=== PATIENT | male | born 1945 | race Caucasian/White ===

== ENCOUNTER 2020-04-22 09:09 | Observation (INO) | payer MEDICARE ==
[~2020-04-22] VITALS: Ht 175.3 cm; Wt 90.7 kg
[2020-04-22] VITALS (13 sets, daily range): BP systolic 118–147; BP diastolic 63–93
--- NOTE | ~2020-04-22 | D ---
[address] [address] DISCHARGE SUMMARY Name: DARBY MONTIEL Room: [address] Inocente Myers#: [id number] Admission: 04/22/20 Attend Phys: Kevon Cunningham MD, Discharge: Date of : 49 Report #: [id number] THIS REPORT FOR: //name// cc: Physician not on staff Physician not on staff ~ THIS REPORT FOR: //name// CC: Kevon MCNEIL Physician staff DATE OF SERVICE: 04/23/2020 FINAL DISCHARGE DIAGNOSES: 1. Unstable angina. 2. Coronary artery disease. 3. Status post complex percutaneous coronary intervention of the left anterior descending, diagonal and circumflex. 4. Hypertension. 5. Family history of coronary artery disease. 6. Exogenous obesity. 7. Statin intolerance. PROCEDURES: 04/22/2020 -- left heart catheterization, left ventriculography, selective coronary arteriography, percutaneous coronary intervention with atherotomy/atherectomy of the first diagonal, stenting of the proximal-mid LAD and stenting of the circumflex with drug-eluting stents deployed at both sites. HOSPITAL COURSE: The patient is a very pleasant and active 75-year-old male with a history of coronary artery disease, status post prior PCIs, most recently in 2007. Recently, he has noted recrudescence of chest pain similar to angina that he experienced in the past following an unstable course of increasing frequency and severity of episodes. He has underlying hyperlipidemia, hypertension and a family history of coronary artery disease. In this context, I recommended to proceed with cardiac catheterization, which was undertaken on 04/22/2020. That study demonstrated normal left ventricular function with estimated ejection fraction of 65%. There was significant multivessel disease with 90% diffuse proximal-mid LAD stenosis, 90% first diagonal stenosis involving a previously stented site, 90% proximal circumflex stenosis and 80% tubular distal circumflex narrowing. The right coronary artery was chronically occluded proximally with oeftj-pn-agtma bridging and hvgd-uj-uvjyt collaterals filling the distal [place] [address] DISCHARGE SUMMARY Name: DARBY MONTIEL Room: [address] M.R.#: [id number] Admission: 04/22/20 Attend Phys: Kevon Cunningham MD, Discharge: Date of : 49 Report #: [id number] Given this data and the patient's strong desire to proceed with percutaneous rather than surgical revascularization, I proceeded with complex PCI, proceeding with atherectomy/atherotomy of the first diagonal, stenting of the proximal-mid LAD with a 2.75 x 23 mm Xience drug-eluting stent post-dilated to 3.1 mm and stenting the proximal circumflex with a 2.5 x 18 mm Rufus drug-eluting stent with 0% residual narrowing at both the LAD and circumflex sites and 40% narrowing of the first diagonal on after atherotomty/atherectomy was performed. He did well postprocedurally without chest pain. Troponin halle inconsequently to 0.98. Additional lab was sodium 134, potassium 4.3, BUN 12, creatinine 1.0, glucose 137. Hemoglobin 14.2, white blood cell count 8400 with 320,000 platelets. The patient ambulated without difficulty and there was good hemostasis at the right femoral site of catheterization. He was discharged to home on the following medications: Aspirin 81 mg daily, cyanocobalamin or vitamin B12 one tablet daily, magnesium 250 mg daily, multivitamin with iron herbal complex 1 tablet daily, omega 3 fatty acids 1000 units daily, prasugrel 10 mg daily with a 60 mg christiana-procedural dose, sertraline 25 mg daily, Micardis 40 mg daily, testosterone jelly topically daily, and p.r.n. sublingual nitroglycerin. Noting the coronary anatomy with strong consideration of additional PCI to the distal circumflex of prominent vessel with 80% tubular narrowing. This was discussed in detail with the patient and family. Therefore, the patient is discharged to home in stable condition on the aforementioned medications with followup to be arranged. He is to call our office at times it would be appropriate for him. Therefore, the patient is discharged in stable condition on 04/23/2020. By: 1050 1117Kevon Cunningham MD, [facility] /nt
[2020-04-22] MEDS ORDERED: ANDROGEL1.25 GM TOP (09:50)
[2020-04-22] MEDS ORDERED: MICARDIS40 MG PO (09:51)
[2020-04-22] MEDS ORDERED: SERTRALINE HCL100 MG PO (09:51)
[2020-04-22] MEDS ORDERED: FISH OIL 1,0001 EAC9 PO (09:52)
[2020-04-22] MEDS ORDERED: MAGNESIUM250 M1 PO (09:53)
[2020-04-22] MEDS ORDERED: B-125000 MC1 PO (09:53)
[2020-04-22] MEDS ORDERED: CHILDREN'S ASPI81 M1 PO (09:53)
[2020-04-22] MEDS ORDERED: VITAMIN D3 COM1 EACH PO (09:54)
[2020-04-22 10:10] LABS: HEMOGLOBIN 14.7 gm/dL (14.0-18.0); MCH 29.7 pg (26.0-34.0); MCV 84.8 fL (80.0-100.0); MPV 7.5 fl. (7.2-11.1); RBC 4.95 mil/uL (4.50-6.00); WBC 7.5 thou/uL (4.0-11.0)
[2020-04-22 10:16] LABS: APTT 26.4 Seconds (25.0-31.3); INR 0.9; PROTIME 9.5 Seconds (9.20-11.50)
[2020-04-22 10:36] LABS: ANION GAP 7 mmol/L (7-16); BUN 9 mg/dL (7-18); CALCIUM 8.8 mg/dL (8.5-10.1); CHLORIDE 101 mmol/L (98-107); CO2 27 mmol/L (21-32); CREATININE 0.9 mg/dL (0.6-1.3); GLUCOSE 103 mg/dL (70-99); POTASSIUM 4.8 mmol/L (3.5-5.1); SODIUM 135 mmol/L (136-145)
[2020-04-22 10:41] LABS: ALBUMIN 3.7 g/dL (3.4-5.0); ALKALINE PHOSPHATASE 62 U/L (46-116); CHOLESTEROL 234 mg/dL (<200); HDL CHOLESTEROL 37 mg/dL (>40); LDL CHOLESTEROL 162 mg/dL (<100); SERUM ASSESSMENT Clear; SGOT 36 U/L (15-37); SGPT 33 U/L (30-65); TC:HDL 6.3 Ratio (Not establshd); TOTAL BILIRUBIN 0.6 mg/dL (<0.1-1.0); TOTAL PROTEIN 7.3 g/dL (6.4-8.2); TRIGLYCERIDE 179 mg/dL (<150); VLDL 36 mg/dL (<40)
--- NOTE | 2020-04-22 14:06 | EKG ---
[place] [address] ELECTROCARDIOGRAM REPORT Name: DARBY MONTIEL Room: [address]#: [id number] Admission: 04/22/20 Attend Phys: Zabrina Womack Discharge: Date of : 49 Date of Service: 04/22/20 1350 Report #: [id number] THIS REPORT FOR: //name// [facility] Test Date: 2020-04-22 Test Time: 13:50:16 Pat Name: DARBY MONTIEL Department: Room: [facility] Gender: M Peoplesoft Hcm Consultant: : 1945 Requested By: Kevon Cunningham Order Number: [id number] Joann MD: Kevon Cunningham Measurements Intervals [place] Rate: 66 P: 69 MD: 126 QRS: 51 QRSD: 122 T: 4 QT: 401 QTc: 421 Interpretive Statements Sinus rhythm Right bundle branch block Baseline wander in lead(s) V2 No previous ECG available for comparison Electronically Signed On 04-22-2020 14:06:20 CDT by Kevon Cunningham [email or web address] <ELECTRONICALLY SIGNED> By: Kevon Cunningham MD, [facility] 04/22/20 1406 1350 1350 Kevon Cunningham MD, [facility] /EPI
--- NOTE | 2020-04-22 14:54 | CARD ---
[address] [address] CARDIAC CATH REPORT Name: TAMMYLashandaDARBY Yanet Room: [address] Inocente M.R.#: [id number] Admission: 04/22/20 Attend Phys: Kevon Cunningham MD, Discharge: Date of : 49 Report #: [id number] THIS REPORT FOR: //name// cc: Physician not on staff Physician not on staff ~ ADDENDUM APPROVED REPORT Study performed: 04/22/2020 10:55:44 Patient Details Patient Status: Out-Patient Room #: The patient is a 75 year-old male Event Personnel Kevon Cunningham Compensation And Benefits Advisor, Cait Brito RN Medicare Coordinator, Clint Donohue SHAREPOINT MANAGER Scrub, Anne Spring RTR Monitor Procedures Performed Art Access - R femoral artery, Left Heart Cath w/or w/o Coronaries LHC, Atherectomy w/wo Plasty Sgl DIAG ATHSINGLE, PAUL Place w/wo Plasty Single LAD , PAUL Place w/wo Plasty Single CIRC , Hemostasis w/ Angioseal Indication Unstable angina Risk Factors Obesity, Hypercholesterolemia, Hypertension Previous Procedures/Diagnoses Previous PCI Admission/Lab Medications/Medications given during procedure Angiomax IV 13.5 ml, Angiomax Drip IV 31.74 ml per hr, Angiomax IV 4 ml, Effient PO 60 mg, Aspirin PO 324 mg Procedure Narrative The patient was brought electively to the Cardiac Catheterization Laboratory and was prepped and draped in a sterile manner. The right femoral was infiltrated with 2% Lidocaine subcutaneous anesthesia. A 6F [place] sheath was inserted into the right femoral artery. Coronary angiography was performed using coronary diagnostic catheters. The right coronary system was accessed and visualized with a 6F JR4 catheter. The left coronary [place] [address] CARDIAC CATH REPORT Name: DARBY MONTIEL Room: [address]#: [id number] Admission: 04/22/20 Attend Phys: Kevon Cunningham MD, Discharge: Date of : 49 Report #: [id number] visualized with a 6F JL4 catheter. The left ventricle was accessed and visualized with a 6F Pigtail catheter. Left ventricular/Aortic Valve gradient assessed via catheter pullback. Left ventriculogram was performed in [place] projection. Pre-demployment femoral angiogram was performed . Closure device was deployed with a 6 Fr Angioseal STS. The patient tolerated the procedure well and there were no complications associated with the procedure. There was no hematoma. Intraoperative Conscious Sedation Sedation start time: 11:23 Case end Time: 12:56 Fentanyl 50 mcg Versed 3 mg Fluoro Time: 27.7 minutes Dose: DAP 346659 cGycm2 5158 mGy Contrast Type and Amount: Visipaque 500 ml Coronary Angiography The patient's coronary anatomy is right dominant. Diagnostic Cath Left Main 0% narrowing LAD 90% diffuse proximalmid vessel stenosis with 90% tandem first diagonal stenosis Circumflex 75% ostial with 90% proximal circumflex stenosis with 75% tubular distal circumflex narrowing Right Coronary 100% proximal right coronary occlusion with bridging right to right and lknv-gs-fldvm collaterals filling the distal right coronary artery Left Ventriculography The left ventricle is normal in size with normal contractility. The left ventricular ejection fraction is estimated to be 65-70%. Left ventricular wall motion abnormalities are not present. There is no mitral insufficiency. Hemodynamics The aortic pressure is 129/59 mmHg with a mean of 89 mmHg. The left ventricular pressure is 130/3 mmHg with a mean of mmHg. The left ventricular end diastolic pressure is 19 mmHg. There was no gradient across the aortic valve upon pullback. PCI Technique Lesion Anticoagulation was achieved with Angiomax. Patient was preloaded with Angiomax IV 13.5 ml. Percutaneous [place] [address] CARDIAC CATH REPORT Name: DARBY MONTIEL Room: [address]#: [id number] Admission: 04/22/20 Attend Phys: Kevon Cunningham MD, Discharge: Date of : 49 Report #: [id number] performed on the first diagnonal branch segment. The lesion stenosis prior to intervention was 90% with REYES 2 flow. A 6F XB LAD 3.5 Guide Catheter was used to engage the ostium. A BMW 190cm Interventional Guidewire was used to cross the lesion. BALLOON DILATION A Balloon catheter Mini Trek RX 1.5 X 12 was inserted and inflated up to 17.00atm for 10seconds. Additional Inflation: 17.00atm for 7seconds. A Balloon catheter Mini Trek RX 2.0 x 15 was inserted and inflated up to 10 bren for 7 seconds. Additional Inflations: 15 bren for 10 seconds; 15 bren for 8 seconds. A Balloon catheter NC Trek RX 2.0 x 12 was inserted and inflated up to 18 bren for 7 seconds. Additional Inflations: 20 bren for 5 seconds; 22 bren for 8 seconds. A Balloon catheter Trek RX 2.5 x 15 was inserted and inflated up to 14 bren for 9 seconds. Additional Inflations: 16 bren for 8 seconds; 16 bren for 10 seconds. An Athrectomy Cutting Balloon catheter AngioSculpt PTCA 2.0 x 10mm was inserted and inflated up to10 bren for 12 seconds. Additional Inflations: 12 bren for 12 seconds; 14 bren for 11 seconds. Final angiography reveals 40 % stenosis with REYES 3 flow. COMMENTS A ProwaterFlex 180cm Interventional Guidewire was advanced down LAD artery. PCI Technique Lesion 2 Percutaneous Coronary Intervention was performed on the proximal left anterior descending artery segment. Patient was preloaded with Angiomax IV 13.5 ml. The lesion stenosis prior to intervention was 90% with REYES flow. A 6F XB LAD 3.5 Guide Catheter was used to engage the lm ostium. A ProwaterFlex 180CM Interventional Guidewire was used to cross the lesion. Balloon Dilation A Balloon catheter NC Euphora 2.75x20 was inserted and inflated up to 18.00atm for 7seconds. Additional Inflation: 18.00atm for 8seconds. Stent Deployment A drug-eluting stent Xience Nova 2.32Q44pj was inserted and inflated up to 15.00atm for 5seconds. Additional Inflation: 18.00atm for 8seconds. Additional Inflation: 20.00atm for 9seconds. Post Stent Deployment Balloon Dilation A Balloon catheter NC Euphora 3.0x12 was inserted and inflated up to [facility] [address] [place] [address] CARDIAC CATH REPORT Name: DARBY MONTIEL Room: [address]#: [id number] Admission: 04/22/20 Attend Phys: Kevon Cunningham MD, Discharge: Date of : 49 Report #: [id number] 17.00atm for 9seconds. Additional Inflation: 20.00atm for 10seconds. Additional Inflation: 20.00atm for 8seconds. Final angiography reveals 0 % stenosis with REYES 3 flow. PCI Technique Lesion 3 Percutaneous Coronary Intervention was performed on the proximal circumflex artery segment. Patient was preloaded with Angiomax IV 13.5 ml. The lesion stenosis prior to intervention was 90% with REYES 3 flow. A 6F XB LAD 3.5 Guide Catheter was used to engage the lm ostium. A BMW 190cm Interventional Guidewire was used to cross the lesion. Balloon Dilation A Balloon catheter Trek RX 2.5 X 15 was inserted and inflated up to 12.00atm for 8seconds. Stent Deployment A drug-eluting stent [place] RX Stent 2.5X18mm was inserted and inflated up to 12.00atm for 7seconds. Additional Inflation: 15.00atm for 7seconds. Final angiography reveals 0 % stenosis with REYES 3 flow. Conclusion 1. Significant multivessel coronary artery disease characterized by the following: A 90% diffuse proximalmid LAD stenosis with tandem 90% first diagonal stenoses B 75% ostial followed by 90% proximal circumflex stenosis with 75% tubular narrowing in the distal portion of this prominent though nondominant vessel C dominant right coronary which is totally occluded proximally with right to right bridging and lhnn-lm-mzgfc collaterals filling the distal right coronary artery 2. Normal left ventricular systolic function, estimated ejection fraction being 65 - 70% 3. Moderate elevation of left ventricular end-diastolic pressure at rest [address] [address] CARDIAC CATH REPORT Name: TAMMYLashandaDARBY Room: [address] Inocente Myers#: [id number] Admission: 04/22/20 Attend Phys: Kevon Cunningham MD, Discharge: Date of : 49 Report #: [id number] 4. Successful angioplasty and atherotomy/atherectomy of the first diagonal branch of the LAD with 40% residual narrowing and REYES-3 flow to the distal vessel 5. Successful PCI with deployment of drug-eluting stent at the site of 90% diffuse proximalmid LAD stenosis with 0% residual narrowing and REYES-3 flow to the distal vessel 6. Successful PCI with deployment of drug-eluting stent at the site of tandem 75% ostial and 90% proximal circumflex stenoses with 0% residual narrowing and REYES-3 flow to the distal vessel Recommendations Cardiac Risk Reduction Program Aggressive Medical Therapy Medications Administered Aspirin (any) Prasugrel Diagnostic Cath Approved by: Kevon Cunningham MD Date/Time: 04/22/2020 14:48:45 <ELECTRONICALLY SIGNED> By: Kevon Cunningham MD, [facility] 04/22/20 1453 1453 1453Kevon Cunningham MD, [facility] /INF
--- NOTE | 2020-04-22 20:00 | NUR ---
RECEIVED REPORT AND ASSUMED CARE OF PT, ASSESSMENT COMPLETED. PT C/O ABD SPASMS, STANDING AT BEDSIDE ATTEMPTING TO GET RELIEF. EXPLAINED FROM QUINONEZ AND REMOVED WITHOUT DIFFICULTY. RT GROIN DRSG DRY AND INTACT, NO HEMATOMA OR DRAINAGE. TELEMETRY ON SHOWING SR. STAYING AT BEDSIDE AND ASSISTING PT NEEDED. WILL CONT TO MONITOR
[2020-04-23 00:10] VITALS: BP 140/68
[2020-04-23 04:00] VITALS: BP 139/70
[2020-04-23 04:48] LABS: HEMATOCRIT 41.1 % (42.0-52.0); HEMOGLOBIN 14.2 gm/dL (14.0-18.0); MCH 29.7 pg (26.0-34.0); MCHC 34.6 g/dL (28.0-37.0); MCV 85.8 fL (80.0-100.0); MPV 7.2 fl. (7.2-11.1); RBC 4.79 mil/uL (4.50-6.00); RDW-CV 13.2 % (10.5-14.5); WBC 8.4 thou/uL (4.0-11.0)
[2020-04-23 05:25] LABS: ALBUMIN 3.5 g/dL (3.4-5.0); CALCIUM 8.2 mg/dL (8.5-10.1); POTASSIUM 4.3 mmol/L (3.5-5.1); TOTAL BILIRUBIN 0.6 mg/dL (<0.1-1.0); TOTAL PROTEIN 7.1 g/dL (6.4-8.2)
[2020-04-23 05:35] LABS: TROPONIN-I LEVEL 0.98 ng/mL (<0.06)
--- NOTE | 2020-04-23 06:30 | NUR ---
RT GROIN REMAINS DRY AND INTACT WITHOUT HEMATOMA. PT AWARE AND CHECKING SITE FREQ. VOIDING WITHOUT DIFFICULTY IN LG AMT. TELEMETRY CONT TO SHOW SR. NO COMPLAINTS VOICED. HS GOALS OF REST AND SAFETY ACHIEVED. HOURLY ROUNDING OBSERVED.
[2020-04-23 08:00] VITALS: BP 124/74
--- NOTE | 2020-04-23 08:00 | NUR ---
ASSUMED CARE OF PATIENT THIS MORNING FROM NIGHT NURSE. PT IS DOING WELL WITH AT BEDSIDE. PLANNING FOR DISCHARGE TODAY.
[2020-04-23] MEDS ORDERED: EFFIENT10 MG PO (11:08)
[2020-04-23] MEDS ORDERED: NITROGLYCERIN0.4 MG SUBLING (11:09)
[2020-04-23 11:25] VITALS: BP 124/74
[2020-04-23 11:35] VITALS: BP 145/70
--- NOTE | 2020-04-23 12:00 | NUR ---
PT WAS DISCHARED HOME WITH A LIST OF DISCHARGE INSTRUCTIONS AND HOME BELONGINGS. WILL CONTINUE TO MONITOR.
== END 2020-04-23 12:00 | disposition home or self-care (01) ==
LOC: M.CL 09:09 → M.TBA-CV 12:08 → M.2W 12:08 → M.TBA-CV 12:08 → M.2W 13:24
PROVIDERS: ADMIT Internal Medicine; ATTEND Internal Medicine
DX: Z03.818 Encounter for observation for suspected exposure to other biological agents ruled out (principal); I25.110 Atherosclerotic heart disease of native coronary artery with unstable angina pectoris; I10 Essential (primary) hypertension; E66.09 Other obesity due to excess calories; T46.6X5A Adverse effect of antihyperlipidemic and antiarteriosclerotic drugs, initial encounter; E78.5 Hyperlipidemia, unspecified; Z79.82 Long term (current) use of aspirin; Z79.899 Other long term (current) drug therapy; Z82.49 Family history of ischemic heart disease and other diseases of the circulatory system

== ENCOUNTER 2020-05-04 10:25 | Observation (INO) | payer MEDICARE ==
[~2020-05-04] VITALS: Ht 172.7 cm; Wt 89.8 kg
[2020-05-04] VITALS (20 sets, daily range): BP systolic 131–162; BP diastolic 62–80
--- NOTE | ~2020-05-04 | H ---
[address] [address] HISTORY AND PHYSICAL Name: DARBY MONTIEL Room: [address] Inocente MPrema#: [id number] Admission: 05/04/20 Attend Phys: Kevon Cunningham MD, Discharge: 05/05/20 Date of : 49 Report #: [id number] THIS REPORT FOR: //name// cc: Physician not on staff Physician not on staff ~ Please refer to the History and Physical performed in the physician's office. By: 1451Medical Records Staff TIFFANIE /CHARANJIT
[~2020-05-04 10:25] MED LIST: ANDROGEL1.25 GM TOP; B-125000 MC1 PO; CHILDREN'S ASPI81 M1 PO; EFFIENT10 MG PO; FISH OIL 1,0001 EAC9 PO; MAGNESIUM250 M1 PO; MICARDIS40 MG PO; NITROGLYCERIN0.4 MG SUBLING; SERTRALINE HCL100 MG PO; VITAMIN D3 COM1 EACH PO
[2020-05-04 11:03] LABS: HEMATOCRIT 40.6 % (42.0-52.0); MCH 29.3 pg (26.0-34.0); MCHC 34.6 g/dL (28.0-37.0); MCV 84.9 fL (80.0-100.0); MPV 7.2 fl. (7.2-11.1); RBC 4.79 mil/uL (4.50-6.00); RDW-CV 13.1 % (10.5-14.5); WBC 6.6 thou/uL (4.0-11.0)
[2020-05-04 11:13] LABS: ANION GAP 7 mmol/L (7-16); BUN 9 mg/dL (7-18); CALCIUM 8.9 mg/dL (8.5-10.1); CHLORIDE 102 mmol/L (98-107); CO2 26 mmol/L (21-32); CREATININE 0.9 mg/dL (0.6-1.3); GLUCOSE 123 mg/dL (70-99); INR 0.9; PROTIME 9.5 Seconds (9.20-11.50); SODIUM 135 mmol/L (136-145)
[2020-05-04 11:19] LABS: ALBUMIN 3.8 g/dL (3.4-5.0); ALKALINE PHOSPHATASE 67 U/L (46-116); CHOLESTEROL 243 mg/dL (<200); HDL CHOLESTEROL 37 mg/dL (>40); LDL CHOLESTEROL 157 mg/dL (<100); SGOT 13 U/L (15-37); SGPT 29 U/L (30-65); TC:HDL 6.6 Ratio (Not establshd); TOTAL BILIRUBIN 0.4 mg/dL (<0.1-1.0); TOTAL PROTEIN 7.5 g/dL (6.4-8.2); TRIGLYCERIDE 249 mg/dL (<150); VLDL 50 mg/dL (<40)
[2020-05-04 11:20] LABS: SERUM ASSESSMENT Clear
--- NOTE | 2020-05-04 15:24 | EKG ---
[place] [address] ELECTROCARDIOGRAM REPORT Name: DARBY MONTIEL Room: [address]#: [id number] Admission: 05/04/20 Attend Phys: Zabrina Womack Discharge: Date of : 49 Date of Service: 05/04/20 1106 Report #: [id number] THIS REPORT FOR: //name// [facility] Test Date: 2020-05-04 Test Time: 11:06:14 Pat Name: DARBY MONTIEL Department: Room: [facility] Gender: M Dude Wrangler: : 1945 Requested By: Kevon Cunningham Order Number: [id number] Joann MD: Kevon Cunningham Measurements Intervals [place] Rate: 86 P: 71 OR: 132 QRS: 58 QRSD: 131 T: 5 QT: 377 QTc: 451 Interpretive Statements Sinus rhythm Right bundle branch block Compared to ECG 04/22/2020 13:50:16 No significant changes Electronically Signed On 05-04-2020 15:23:43 CDT by Kevon Cunningham [email or web address] <ELECTRONICALLY SIGNED> By: Kevon Cunningham MD, [facility] 05/04/20 1523 1106 1106 Kevon Cunningham MD, [facility] /EPI
[2020-05-04] MEDS ORDERED: TRESIBA100 UNIT/1 SUBQ (16:11)
[2020-05-05] VITALS: BP 140/72
[2020-05-05 04:00] VITALS: BP 146/67
[2020-05-05 05:35] LABS: HEMATOCRIT 35.8 % (42.0-52.0); HEMOGLOBIN 12.5 gm/dL (14.0-18.0); MCH 29.7 pg (26.0-34.0); MCHC 34.9 g/dL (28.0-37.0); MCV 84.9 fL (80.0-100.0); MPV 7.3 fl. (7.2-11.1); RBC 4.22 mil/uL (4.50-6.00); RDW-CV 13.3 % (10.5-14.5); WBC 8.9 thou/uL (4.0-11.0)
[2020-05-05 06:12] LABS: ALBUMIN 3.1 g/dL (3.4-5.0); CALCIUM 8.1 mg/dL (8.5-10.1); POTASSIUM 4.4 mmol/L (3.5-5.1); TOTAL BILIRUBIN 0.5 mg/dL (<0.1-1.0); TOTAL PROTEIN 6.4 g/dL (6.4-8.2); TROPONIN-I LEVEL 0.55 ng/mL (<0.06)
[2020-05-05 07:57] VITALS: BP 134/69
[2020-05-05 12:00] VITALS: BP 140/58
--- NOTE | 2020-05-05 12:40 | EKG ---
[place] [address] ELECTROCARDIOGRAM REPORT Name: DARBY MONTIEL Room: [address]#: [id number] Admission: 05/04/20 Attend Phys: Zabrina Womack Discharge: 05/05/20 Date of : 49 Date of Service: 05/05/20 0808 Report #: [id number] THIS REPORT FOR: //name// [facility] Test Date: 2020-05-05 Test Time: 08:08:54 Pat Name: DARBY MONTIEL Department: Room: [facility] Gender: M Advance Scout: : 1945 Requested By: Kevon Cunningham Order Number: [id number] Joann MD: Kevon Cunningham Measurements Intervals [place] Rate: 69 P: 71 W[place]: 126 QRS: 50 QRSD: 131 T: 17 QT: 407 QTc: 436 Interpretive Statements Sinus rhythm Right bundle branch block Compared to ECG 05/04/2020 11:06:14 No significant changes Electronically Signed On 05-05-2020 12:40:45 CDT by Kevon Cunningham [email or web address] <ELECTRONICALLY SIGNED> By: Kevon Cunningham MD, [facility] 05/05/20 1240 0808 0808 Kevon Cunningham MD, [facility] /EPI
--- NOTE | 2020-05-05 13:24 | D ---
[address] [address] DISCHARGE SUMMARY Name: DINESHDARBY Yanet Room: [address] Inocente Myers#: [id number] Admission: 05/04/20 Attend Phys: Kevon Cunningham MD, Discharge: 05/05/20 Date of : 49 Report #: [id number] THIS REPORT FOR: //name// cc: Physician not on staff Physician not on staff ~ THIS REPORT FOR: //name// CC: Kevon MCNEIL Physician staff DATE OF SERVICE: 05/05/2020 FINAL DISCHARGE DIAGNOSES: 1. Unstable angina. 2. Complex coronary artery disease. 3. Hypertension. 4. Hyperlipidemia. 5. Family history of coronary artery disease. 6. Exogenous obesity. 7. Type 2 diabetes. PROCEDURES: On 05/04/2020 -- left heart catheterization, selective coronary arteriography and percutaneous coronary intervention with deployment of drug-eluting stent at the site of 75% tubular distal circumflex stenosis. HOSPITAL COURSE: The patient is a very pleasant and active 75-year-old male with a history of multiple prior PCIs. Recently, he has noted marked dyspnea and chest discomfort with exertion, typical of his prior angina. Approximately 10 days ago, I performed cardiac catheterization that revealed 90% tubular proximal-mid LAD stenosis, 90% first diagonal stenosis, 90% proximal circumflex stenosis, 75% tubular distal circumflex stenosis, and chronic total occlusion of the proximal right coronary artery with left to right collaterals filling the distal right coronary artery. LV function was normal, estimated ejection fraction was 65%. I performed complex intervention on the first diagonal with stenting of the proximal LAD and stenting the proximal circumflex with 0% residual narrowings at both stented sites. After discharge, the patient noted mild discomfort, but the symptoms had improved markedly after LAD and circumflex intervention. Given the recurrent angina and the known distal circumflex lesion, I performed recatheterization on 05/04/2020, which revealed widely patent proximal circumflex and proximal LAD stents with moderate residual narrowing in a moderate-sized first diagonal branch. I performed PCI in the distal circumflex, deployed one 2.25 x 34 mm Rufus drug-eluting stent, post-dilated to 2.5 mm with 0% residual narrowing and REYES 3 [place] [address] DISCHARGE SUMMARY Name: DARBY MONTIEL Yanet Room: [address] Inocente Myers#: [id number] Admission: 05/04/20 Attend Phys: Kevon Cunningham MD, Discharge: 05/05/20 Date of : 49 Report #: [id number] The patient did well post-procedurally with good hemostasis at the left femoral site of catheterization. LABORATORY DATA: On 05/05/2020, revealed a troponin increased inconsequentially to 0.55, hemoglobin of 12.5, white blood cell count 8900 with 239,000 platelets. Sodium 133, potassium 4.4, BUN 9, creatinine 1.0, and glucose 177 mg percent. The patient ambulated in the hallways without difficulty. DISCHARGE MEDICATIONS: He was discharged to home on the following medications: Aspirin 81 mg daily, cyanocobalamin or vitamin B12 at 5000 mcg daily, Tresiba or degludec insulin 32 units subcutaneously at bedtime, magnesium 250 mg daily, multivitamin with iron 1 tablet daily, omega 3 fatty acids 1000 units daily, prasugrel 10 mg daily, sertraline 25 mg daily, telmisartan or Micardis 40 mg daily, testosterone or AndroGel topically daily, and p.r.n. sublingual nitroglycerin. Thus, the patient was discharged to home in stable condition. I will plan to see him in followup in 3-4 weeks. Therefore, the patient is discharged to home in stable condition on the aforementioned medications with followup as iterated above. <ELECTRONICALLY SIGNED> By: Kevon Cunningham MD, [facility] 05/05/20 1324 0950 1009Joalessandro Cunningham MD, [facility] /nt
--- NOTE | 2020-05-06 09:22 | CARD ---
[address] [address] CARDIAC CATH REPORT Name: DINESHDARBY Yanet Room: [address] Inocente M.RChayito#: [id number] Admission: 05/04/20 Attend Phys: Kevon Cunningham MD, Discharge: 05/05/20 Date of : 49 Report #: [id number] THIS REPORT FOR: //name// cc: Physician not on staff Physician not on staff ~ ADDENDUM APPROVED REPORT Study performed: 05/04/2020 12:10:38 Patient Details Patient Status: Out-Patient Room #: The patient is a 75 year-old male Event Personnel Kevon Cunningham R Programmer, Cait Brito RN RN, Dimitrios Núñez RTR Scrub, Yuni Bell RTR Monitor Procedures Performed Art Access - L femoral artery, Left Heart Cath w/or w/o Coronaries, PAUL Place w/wo Plasty Single CIRC, Hemostasis w/ Angioseal Indication Unstable angina Risk Factors Obesity, Hypercholesterolemia, Hypertension Previous Procedures/Diagnoses Previous PCI Admission/Lab Medications/Medications given during procedure Oxygen Nasal cannula 2 l per min, 0.9% Sodium Chloride IV 75 ml per hr, Fentanyl IV 25 mcg, Midazolam (Versed) IV 2 mg, Lidocaine Subcut 14 ml, Lidocaine Subcut 10 ml, Angiomax IV 13.5 ml, Angiomax Drip IV 31.67 ml per hr, Angiomax IV 4 ml, Effient PO 30 mg, Aspirin PO 81 mg Procedure Narrative The patient was brought electively to the Cardiac Catheterization Laboratory and was prepped and draped in a sterile manner. The left femoral was infiltrated with 2% Lidocaine subcutaneous anesthesia. A Orion 6 FR sheath was inserted into the left femoral artery. Coronary angiography was performed using coronary diagnostic catheters. The left coronary system [place] [address] CARDIAC CATH REPORT Name: DINESHDARBY Yanet Room: [address] Inocente Myers#: [id number] Admission: 05/04/20 Attend Phys: Kevon Cunningham MD, Discharge: 05/05/20 Date of : 49 Report #: [id number] a Diagnostic 6 Fr JL 4 catheter. The left ventricle was accessed and visualized with a Diagnostic 6 Fr Pigtail catheter. Left ventricular/Aortic Valve gradient assessed via catheter pullback. Pre-demployment femoral angiogram was performed . Closure device was deployed with a 6 Fr Angioseal STS. The patient tolerated the procedure well and there were no complications associated with the procedure. There was no hematoma. Intraoperative Conscious Sedation Sedation start time: 12:51 Case end Time: 13:47 Fentanyl 25 mcg Versed 2 mg Fluoro Time: 12.0 minutes Dose: DAP 186497 cGycm2 1818 mGy Contrast Type and Amount: Visipaque 230 ml Diagnostic Cath Left Main 0% narrowing LAD Widely patent proximal LAD stent with 0% narrowing; there was 50% distal LAD narrowing Diagonal 1 80% stenosis of the proximal portion of the moderate-sized first diagonal branch Circumflex Widely patent proximal stent with 30% mid circumflex in-stent restenosis followed by tubular 75% distal circumflex stenosis Right Coronary Previously defined 100% occlusion proximally with [id number] collaterals filling the distal right coronary system Left Ventriculography Left Ventriculography was not performed. Hemodynamics The aortic pressure is 175/64 mmHg with a mean of 85 mmHg. The left ventricular pressure is 169/4 mmHg with a mean of mmHg. The left ventricular end diastolic pressure is 25 mmHg. There was no gradient across the aortic valve upon pullback. PCI Technique Lesion Anticoagulation was achieved with Angiomax. Patient was preloaded with Angiomax IV 13.5 ml. Percutaneous coronary intervention was performed on the distal circumflex artery segment. The lesion stenosis prior to intervention was 75% with REYES 3 flow. A 6F XB LAD 3.5 Guide Catheter was used to engage the lm ostium. A BMW 190cm Interventional Guidewire was [place] [address] CARDIAC CATH REPORT Name: DARBY MONTIEL Room: [address] Inocente M.RChayito#: [id number] Admission: 05/04/20 Attend Phys: Kevon Cunningham MD, Discharge: 05/05/20 Date of : 49 Report #: [id number] BALLOON DILATION A Balloon catheter Trek RX 2.25 X 15 was inserted and inflated up to 12.00atm for 11seconds. STENT DEPLOYMENT A drug-eluting stent Rufus RX Stent 2.79B70am was inserted and inflated up to 10.00atm for 13seconds. Additional Inflation: 14.00atm for 10seconds. POST STENT DEPLOYMENT BALLOON DILATION A Balloon catheter NC Trek RX 2.5 X 15 was inserted and inflated up to 16.00atm for 10seconds. Additional Inflation: 18.00atm for 9seconds. Additional Inflation: 20.00atm for 9seconds. Final angiography reveals 0 % stenosis with REYES 3 flow. Conclusion 1. Significant coronary artery disease characterized by the following: A widely patent proximal LAD stent with 50% distal LAD narrowing; there was 80% stenosis of the proximal portion of a moderate-sized first diagonal branch B prominent though nondominant circumflex with a widely patent proximal stent with 30% mid vessel in-stent restenosis and tubular 75% distal narrowing C previously defined 100% occlusion of the dominant right coronary proximally with prominent left to right collaterals filling the distal right coronary artery 2. Moderate systemic systolic hypertension with moderately severe elevation of left ventricular end-diastolic pressure at rest 3. Successful PCI with deployment of a drug-eluting stent at site of 75% tubular distal circumflex stenosis with 0% residual narrowing and REYES-3 flow to the distal vessel Recommendations Cardiac Risk Reduction Program Aggressive Medical Therapy [place] [address] CARDIAC CATH REPORT Name: DARBY MONTIEL Room: [address] Inocente Myers#: [id number] Admission: 05/04/20 Attend Phys: Kevon Cunningham MD, Discharge: 05/05/20 Date of : 49 Report #: [id number] Aspirin (any) Prasugrel Diagnostic Cath Approved by: Kevon Cunningham MD Date/Time: 05/04/2020 15:45:41 <ELECTRONICALLY SIGNED> By: Kevon Cunningham MD, FAC 05/06/20921 1 1Kevon Cunningham MD, FACC /INF
== END 2020-05-05 12:15 | disposition home or self-care (01) ==
LOC: M.CL 10:25 → M.TBA-CV 13:26 → M.2W 13:26 → M.TBA-CV 13:26 → M.2W 14:35
PROVIDERS: ADMIT Internal Medicine; ATTEND Internal Medicine
DX: I25.110 Atherosclerotic heart disease of native coronary artery with unstable angina pectoris (principal); E78.5 Hyperlipidemia, unspecified; I10 Essential (primary) hypertension; E11.9 Type 2 diabetes mellitus without complications; E66.09 Other obesity due to excess calories; Z68.30 Body mass index [BMI] 30.0-30.9, adult; Z79.899 Other long term (current) drug therapy; Z20.828 Contact with and (suspected) exposure to other viral communicable diseases; Z82.49 Family history of ischemic heart disease and other diseases of the circulatory system

== ENCOUNTER → 2021-06-15 | Outpatient (CLI) | payer MEDICARE ==
[~2021-06-15] MED LIST changes: +TRESIBA100 UNIT/1 SUBQ
--- NOTE | 2021-06-15 15:09 | CARDNUC ---
[place] [address] CARDIAC NUCLEAR IMAGING REPORT Name: TAMMYLashandaDARBY Yanet Room: [facility]#: [id number] Admission: 06/15/21 Attend Phys: Zabrina Womack Discharge: Date of : 49 Date of Service: 06/15/21 1508 Report #: [id number] THIS REPORT FOR: cc: Howard Wright MD, Steven M. MD Biggs, F. Douglas MD [facility] ~ APPROVED REPORT Study performed: 06/15/2021 10:54:09 Exam: Nuclear Stress Test Indication: ROUTINE Patient Location: Out-Patient Stress Tech: CINDY KELSEY Stress Nurse: Maggie Nicholson RN NM Tech:JENA BradyTCB Ht: 5 ft 9 in Wt: 218 lbs BSA: 2.14 m2 BMI: 32.18 Medical History Medical History: CAD s/p stent, Diabetes, HTN, Hyperlipidemia Medications: ASA-81, LOSARTAN Allergies: PENICILLIN STATINS Cardiac Risk Factors: Age, DM, HTN, Hyperlipidemia Previous Cardiac Procedures: PCI Exercise History: Indeterminate Stress Test Details Stress Test: Pharmacologic stress testing performed using 0.4 mg of regadenoson per 5 mL given IV over 10 seconds. Reason for pharmacologic stress test: physical limitation. HR Resting HR: 77 bpm Max Heart Rate (APMHR): 146 bpm Max HR Achieved: 100 bpm Target HR (85% APMHR): 124 bpm % of APMHR: 68 Recovery HR: 75 bpm HR response to stress: Normal HR response to stress BP Resting BP: 152/73 mmHg Max BP: 100/76 [place] [address] CARDIAC NUCLEAR IMAGING REPORT Name: DARBY MONTIEL Room: [facility]#: [id number] Admission: 06/15/21 Attend Phys: Zabrina Womack Discharge: Date of : 49 Date of Service: 06/15/21 1508 Report #: [id number] BP response to stress: Abnormal hypotensive response to stress. ECG Resting ECG: Sinus Rhythm, RBBB Stress ECG: Sinus Rhythm, RBBB ST Change: None Arrhythmia: None Recovery ECG: Sinus Rhythm, RBBB Recovery ST Change: None Recovery Arrhythmia: None Clinical Reason for Termination: BRADYCARDIA Stress Symptoms: None Nurse Comments PT UNABLE TO WALK ON TREADMILL DUE TP A BAD KNEE. PT BECAME BRADYCARDIC AND DIAPHORECTIC APPOX 3MIN INTO TEST. PT PLACED IN SUPINE POSITION AND 60MG OF CAFFEINE WAS GIVEN IVP. DR HI IN ROOM TO SEE PATIENY. PT IMPROVED ENOUGH TO SIT UP AND DRINK A CUP OF COFFEE. PT PUT INTO A WHEELCHAIR AND ESCORTED TO [facility] WHEE HE WOULD BE FURTHER MONITORED BY NUC DANIE Stress ECG Conclusion Clinical: Non-ischemic Non-diagnostic exercise stress due to failure to attain target HR. NM EXAM: Myocardial Perfusion REST/STRESS Imaging Protocol: Rest Tc-99m/Stress Tc-99m 1 day Resting Data Rest SPECT myocardial perfusion imaging was performed in supine position 30 minutes following the intravenous injection of 11.7 mCi of Tc-99m Sestamibi. Time of rest injection: 0950 Date: 06/15/2021 The images were gated to evaluate regional wall motion and calculate left ventricular ejection fraction. Administration Route: IV Administration Site: Left Hand Pharmacologic Stress Pharmacologic stress test was performed by injecting Regadenoson 0.4 mg IV push followed by the intravenous injection of 35.0 mCi of Tc-99m Sestamibi. Time of stress injection: 1055 Date: 06/15/2021 [place] [address] CARDIAC NUCLEAR IMAGING REPORT Name: DARBY MONTIEL Room: [facility]#: [id number] Admission: 06/15/21 Attend Phys: Zabrina Womack Discharge: Date of : 49 Date of Service: 06/15/21 1508 Report #: [id number] Administration Route: IV Administration Site: Left Hand Gated Stress SPECT was performed 40 minutes after stress injection. The images were gated to evaluate regional wall motion and calculate left ventricular ejection fraction. Study Quality Study: Good Artifact: No artifact No artifact Lung Uptake: Normal Study Data At rest, the left ventricular ejection fraction was 67%.. Post stress, the left ventricular ejection was 69%.. SSS: 1 SRS: 0 SDS: 1 TID = 1.07. Perfusion Resting study demonstrated a small mild inferior defect near the base. The post stress images demonstrate a moderate in size and moderate intensity inferior defect near the base that is a larger more severe inferior defect and was seen at rest. Prone imaging was obtained and it demonstrated a moderate in size and moderate intensity inferior defect as well near the base. These images demonstrate a small to moderate in size and mild to moderate in intensity inferior partially reversible defect near the base that is consistent with an old small inferior SD near the base with christiana-infarction ischemia involving the more proximal portion of the inferior wall. Images were reviewed using [email or web address]. Wall Motion Normal left ventricular wall motion. Nuclear Conclusion ECG Findings: non-diagnostic Clinical Findings: negative for ischemia Nuclear Findings: positive for ischemia Exercise Capacity: not assessed Left Ventricular Function: normal Risk Study: moderate The Lexiscan Cardiolite stress test demonstrates a small to moderate sized and moderate in intensity [place] [address] CARDIAC NUCLEAR IMAGING REPORT Name: DARBY MONTIEL Room: [facility]#: [id number] Admission: 06/15/21 Attend Phys: Zabrina Womack Discharge: Date of : 49 Date of Service: 06/15/21 1508 Report #: [id number] consistent with an old small SD with christiana-infarct ischemia more proximally in the inferior wall. Overall this is only a moderate risk study. <Conclusion> Clinical: Non-ischemic Non-diagnostic exercise stress due to failure to attain target HR. <ELECTRONICALLY SIGNED> By: Ban Altman MD, FACC 06/15/21 1508 1508 150 Ban Altman MD, FACC /INF
== END ==
LOC: M.NUC 06-08 09:06
PROVIDERS: ATTEND Internal Medicine
DX: I25.89 Other forms of chronic ischemic heart disease (principal); I25.10 Atherosclerotic heart disease of native coronary artery without angina pectoris; Z95.5 Presence of coronary angioplasty implant and graft